=== PATIENT | female | born 1965 | race Hispanic/Latino ===

== ENCOUNTER → 2019-09-09 | Outpatient (CLI) | payer OTHER ==
[~2019-09-09] MED LIST: ASPIRIN81 MG PEG; DEXILANT30 MG PO; EFFIENT10 MG PO; METOPROLOL TART25 MG PO; NITROGLYCERIN0.4 MG SL; Rosuvastatin Calcium PO; VASOTEC10 M1 PO; VYTORIN 10-401 EACH PO
--- NOTE | 2019-09-09 15:04 | Diagnostic Imaging Report ---
CT of the abdomen and pelvis. Comparison: None Clinical History: Left flank pain Technique: Helical CT scan of the abdomen and pelvis was performed. Intravenous contrast administration was not utilized. Oral contrast administration was not utilized. Coronal and sagittal reconstructions were generated from the raw data. Multiple images were submitted for interpretation. This exam was performed according to our departmental dose-optimization program which includes automated exposure control, adjustment of the mA and/or kV according to patient size Discussion: Inferior chest: Unremarkable. Liver: Unremarkable Spleen: Unremarkable Pancreas: Unremarkable Biliary tree and gallbladder: Unremarkable Adrenal glands: Unremarkable Kidneys and ureters: 4 mm left UVJ calculus. Vasculature: Unremarkable except for minimal atherosclerosis Lymph nodes: Unremarkable Bowel: Unremarkable Pelvis: Urinary bladder is unremarkable. 2 cm right ovarian cyst otherwise unremarkable. Pelvic wall unremarkable. Peritoneum: Unremarkable Perineal compartments: unremarkable. Fluid: No free fluid Bones: Unremarkable Body wall: Unremarkable Impression: Possible left UVJ 4 mm calculus without hydronephrosis or hydroureter. No other renal or ureteric calculi visualized. Signed by: Sanjeev Nguyễn MD on 09/09/2019 3:01 PM
== END ==
LOC: CT 13:00
PROVIDERS: ATTEND Family Medicine
DX: N23 Unspecified renal colic (principal)
CPT/HCPCS: 74176

== ENCOUNTER → 2019-09-25 | Day surgery (SDC) | payer OTHER ==
--- NOTE | 2019-09-22 12:38 | Diagnostic Imaging Report ---
EXAMINATION: CHEST 2 VIEWS INDICATION: Pre-operative COMPARISON: None FINDINGS: LINES/TUBES:Left chest loop recorder device. LUNGS:The lungs are well-inflated. No focal consolidation or pulmonary edema. PLEURA:No pleural effusion or pneumothorax. MEDIASTINUM:The cardiomediastinal silhouette appears normal in size and shape. BONES/SOFT TISSUES:No acute osseous injury. ABDOMEN:No free air under the diaphragm. IMPRESSION: No focal pneumonia or pulmonary edema. Signed by: Carissa Garcia MD on 09/22/2019 12:35 PM
[2019-09-22 12:43] LABS: BASOPHILS # (AUTO) 0.1 (0.0-0.1); BASOPHILS % 0.9 % (0.0-1.0); EOSINOPHILS # (AUTO) 0.5 (0.0-0.4); EOSINOPHILS % 8.7 % (0.0-6.0); HEMATOCRIT 38.9 % (34.2-44.1); HEMOGLOBIN 13.4 g/dL (12.0-16.0); LYMPHOCYTES # (AUTO) 2.3 (1.0-3.2); MEAN CORPUSCULAR HGB CONC 34.4 g/dL (31-35); MONOCYTES # (AUTO) 0.4 (0.2-0.8); MONOCYTES % 6.6 % (4.4-11.3); NEUTROPHILS # (AUTO) 2.5 (2.1-6.9); NEUTROPHILS % 43.5 % (38.7-80.0); PLATELET COUNT 257 x10e3/uL (140-360); RED BLOOD COUNT 4.47 x10e6/uL (3.6-5.1); RED CELL DISTRIBUTION WIDTH 11.3 % (11.7-14.4)
[~2019-09-25] MED LIST changes: +ACETAMINOPHEN 1000 MG/100 ML IV ONE; +ACETAMINOPHEN325 M1 PO; -ASPIRIN81 MG PEG; +ASPIRIN81 MG PO; +CEFTRIAXONE SOD 1 GM/NS 50 ML 50 ML IV ONE; +DEXAMETHASONE SOD PHOS INJ 4 MG/ML VIAL ONE; +ETOMIDATE 2 MG/ML 10 ML INJ IV ONE; +FENOFIBRATE145 MG PO; +IOPAMIDOL 300MG/ML 50ML INFUS..BTL IV ONE; +LANSOPRAZOLE30 MG PO; +LIPITOR20 MG PO; +ONDANSETRON HCL INJ 2MG/ML 2ML 2 MG/ML VIAL ONE; +PROPOFOL IV EMULSION 10 MG/ML 20 ML VIAL ONE; +SEVOFLURANE INHAL SOLN 250 ML PEN BTL ONE
[2019-09-25 09:15] VITALS: BP 138/83
--- NOTE | 2019-09-25 15:45 | Diagnostic Imaging Report ---
OR Fluoroscopy: IMPRESSION: Fluoroscopy service provided in the OR. Interpretation not requested. Signed by: Sanjeev Nguyễn MD on 09/25/2019 3:41 PM
--- NOTE | 2019-09-27 12:58 | Operative Report ---
DATE OF PROCEDURE: 09/25/2019 SURGEON: Adryan Woods MD PREOPERATIVE DIAGNOSES: 1. Left ureteral calculus. 2. Hematuria. POSTOPERATIVE DIAGNOSES: 1. Left ureteral calculus. 2. Hematuria. 3. Ureteral stricture disease, passed stone. PROCEDURES: 1. Cystourethroscopy with right ureteral catheterization and right retrograde pyelogram (separate procedure for diagnosis of microscopic hematuria). 2. Left-sided ureteroscopy with dilation of ureteral stricture (entirely separate procedure for diagnosis of ureteral stricture disease). 3. Supervision of fluoroscopy for both ureteroscopy and retrograde pyelogram portions. 4. Interpretation of retrograde pyelography. ANESTHESIA: General. ESTIMATED BLOOD LOSS: Minimal. COMPLICATIONS: None. INDICATIONS FOR PROCEDURE: Mrs. Boyce is a very pleasant 54-year-old female with a history of failure to pass a 4 mm left renal stone. On the day of surgery, the patient still continued to have intermittent left-sided flank pain, sharp and severe; and is having the same as when she presented to the emergency room, showing an obstructing stone. The patient and I had a long discussion in the preoperative area regarding alternatives, risks, and benefits of doing nothing, cystoscopy, retrograde pyelogram, possible ureteroscopy, . She voiced understanding of the options, alternatives, risks, and benefits; and she elected to proceed. PROCEDURE IN DETAIL: After informed consent was obtained, the patient was taken to operative suite, placed supine on the operative table, underwent general anesthesia by the Anesthesia Service, was placed in dorsal position, and sterilely prepped and draped for cystoscopy. A 21-Bengali cystoscope was inserted per urethra and normal urethra was noted. Panendoscopy of the bladder revealed no tumors, no stones. Both ureteral orifices were normal in anatomic location and position was seen to efflux clear urine. Bilateral retrograde pyelogram was performed, on the left revealed several filling defects in the distal ureter with narrowing, guidewire was inserted, the ureter was dilated. The ureteroscope was advanced, there were several ureteral strictures seen. Stone was gone. At this time, ureteroscope was withdrawn. The safety wire was removed. The bladder was drained. The patient was awakened from anesthesia and transported to recovery room in excellent condition. No untoward effects noted. Supervision of fluoroscopy and interpretation of retrograde pyelography: I was present for the entire procedure and supervised fluoroscopy. There was no radiologist present. Attention was turned to the left and right ureters, which were catheterized. Retrograde pyelogram was performed; the right was normal, left revealed several distal narrowings. IMPRESSION: Filling defects corresponding to the ureteral stricture seen ureteroscopically. MD LASHON Alcantara/CORAZON /[id number]
== END | disposition home or self-care (01) ==
LOC: OR 05:48
PROVIDERS: ATTEND Urology
DX: N13.5 Crossing vessel and stricture of ureter without hydronephrosis (principal); N20.1 Calculus of ureter; N39.0 Urinary tract infection, site not specified; N13.30 Unspecified hydronephrosis; R35.1 Nocturia; I10 Essential (primary) hypertension; I25.10 Atherosclerotic heart disease of native coronary artery without angina pectoris; F41.8 Other specified anxiety disorders; Z88.6 Allergy status to analgesic agent; Z01.810 Encounter for preprocedural cardiovascular examination; Z01.812 Encounter for preprocedural laboratory examination; Z01.818 Encounter for other preprocedural examination; Z11.59 Encounter for screening for other viral diseases; Z79.82 Long term (current) use of aspirin; Z98.61 Coronary angioplasty status
CPT/HCPCS: 36415; 52344; 71046; 74420; 85025; 87635; 93005; C1758 ×2; C1769; J0131; J0696; J1100; J2405; J2704; Q9967

== ENCOUNTER 2019-12-16 15:12 | Emergency (ER) | payer OTHER ==
[~2019-12-16] VITALS: Ht 162.6 cm; Wt 65.3 kg
[~2019-12-16 15:12] MED LIST changes: -ACETAMINOPHEN 1000 MG/100 ML IV ONE; -CEFTRIAXONE SOD 1 GM/NS 50 ML 50 ML IV ONE; -DEXAMETHASONE SOD PHOS INJ 4 MG/ML VIAL ONE; -ETOMIDATE 2 MG/ML 10 ML INJ IV ONE; -IOPAMIDOL 300MG/ML 50ML INFUS..BTL IV ONE; -ONDANSETRON HCL INJ 2MG/ML 2ML 2 MG/ML VIAL ONE; -PROPOFOL IV EMULSION 10 MG/ML 20 ML VIAL ONE; -SEVOFLURANE INHAL SOLN 250 ML PEN BTL ONE
[2019-12-16] MEDS ORDERED: ONDANSETRON HCL INJ 2MG/ML 2ML 2 MG/ML VIAL IV STA (15:21)
[2019-12-16] MEDS ORDERED: DILTIAZEM HCL 5 MG/ML 5 ML VIAL IV STA (15:21)
[2019-12-16] MEDS ORDERED: SODIUM CHLORIDE 0.9% 1000ML 1,000 ML IV STA (15:21)
[2019-12-16] MEDS ORDERED: ADENOSINE 6MG/2ML 0 ML ONE (15:22)
[2019-12-16] MEDS ORDERED: DILTIAZEM HCL VIAL 5 ML ONE (15:25)
--- OUTSIDE RECORDS SUMMARY | 2019-12-16 15:25 | XMS REPORT | Summary of Care ---
Author Author [facility] Organization [facility] Address Unknown Phone Unavailable Encounter HQ Encntr_[id number](FIN) [id number] Date(s): 10/20/19 - 10/20/19 [facility] [address] [place] [address]- Discharge Disposition: Home or Self Care Attending Physician: Tino Orozco MD Admitting Physician: Tino Orozco MD Referring Physician: Tino Orozco MD Vital Signs No data available for this section Problem List No data available for this section Allergies, Adverse Reactions, Alerts Substance Reaction Severity Status morphine Active Benadryl Active Medications No data available for this section Results No data available for this section Immunizations No data available for this section Procedures No data available for this section Social History Social History Type Response Assessment and Plan No data available for this section
--- OUTSIDE RECORDS SUMMARY | 2019-12-16 15:25 | XMS REPORT | Continuity of Care Document ---
Author Author [employer] [facility] Address Unknown Phone Unavailable Care Team Providers Care Mental Tester Name Role Phone [facility] Information [place] Unavailable Un available Problems Problem Status Onset Date Classification Date Reported Comments Source DX: INVALID ORDER, PENDING NEW ORDER * Active 10/19/2019 [facility] ROUTINE MAMMO Active 10/15/2019 [facility] ROUTINE Active 06/09/2018 [facility] SCREENING Active 05/04/2014 [facility] Encounter for screening mammogram for ma lignant neoplasm of breast 06/19/2018 [facility] Medications No Data Provided for This Section Allergies, Adverse Reactions, Alerts Substance Category Reaction Severity Reaction type Status Date Reported Comments Source Benadryl Assertion Drug allergy Active [facility] morphine Assertion Drug allergy Active [facility] Immunizations No Data Provided for This Section Results No Data Provided for This Section Pathology Reports No Data Provided for This Section Diagnostic Reports Report Value Date Source Breast Complete Jessica US COMPLETE ULTRASOUND OF BOTH BREASTS AND AXILLA: 10/20/2019 CLINICAL: /Pain. COMPARISON:Comparison is made to exams dated: 10/20/2019 mammogram, 06/17/2018 mammogram, 05/11/2014 mammogram, and 09/28/2011 mammogram - [facility]. TECHNIQUE: Color flow and real-time ultrasound of both breasts four quadrants, retroareolar, and axilla regions were performed. Osborn scale images of the real- time examination were reviewed. FINDINGS: No abnormalities were seen sonographically in either breast or either axilla. IMPRESSION: NEGATIVE RECOMMENDATION:There is no sonographic evidence of malignancy. There is no mammographic or sonographic abnormality seen in either breast to correspond with the pain which likely represents hormonal stimulation and normal fibroglandular tissue. A 1 year screening mammogram is recommended.(10/20/2020) The results were reviewed with the patient. This exam was interpreted at [id number] for [facility]. Rayray diaz/salvador:10/20/2019 13:44:52 [employer] Operator(s): Elodia Mosher, [facility] letter sent: BI-RADS 1/2 Ultrasound BI-RADS: 1 Negative 10/20/2019 [facility] Mammo Diag JESSICA incl CAD MA BILATERAL DIGITAL DIAGNOSTIC MAMMOGRAM WITH CAD: 10/20/2019 CLINICAL: /Pain. Current study was evaluated with a Computer Aided Detection (CAD) system. COMPARISON:Comparison is made to exams dated: 06/17/2018 mammogram and 05/11/2014 mammogram - [facility]. TECHNIQUE: Mammographic views were obtained using digital acquisition. Cenovia Version 1.3 was utilized for computer aided detection. FINDINGS: The tissue of both breasts is heterogeneously dense, which could obscure detection of small masses. There is a left implantable cardiac device/loop monitor. There are benign calcifications in both breasts. No significant masses, calcifications, or other findings are seen in either breast. There has been no significant interval change. IMPRESSION: INCOMPLETE: NEEDS ADDITIONAL IMAGING EVALUATION RECOMMENDATION:There is no mammographic abnormality seen in either breast to correspond with the pain, however, ultrasound is recommended. The results were reviewed with the patient. This exam was interpreted at [id number] for [facility]. SUMMARY: Ultrasound will be performed at this time; please see dedicated separate report. Rayray diaz/pengato:10/20/2019 13:42:32 Wastewater Treatment Operator(s): Henrietta Yepez, [facility] Mammogram BI-RADS: 0 Indeterminate 10/20/2019 [facility] Mammo Scrn JESSICA w krysta incl CAD MA BILATERAL DIGITAL SCREENING MAMMOGRAM 3D/2D WITH CAD: 06/17/2018 CLINICAL: /Routine. Current study was evaluated with a Computer Aided Detection (CAD) system. COMPARISON:Comparison is made to exams dated: 05/11/2014 mammogram, 09/28/2011 mammogram, 03/01/2009 mammogram - [facility], 05/23/2006, and 11/19/2002. TECHNIQUE: Digital Breast Tomosynthesis was performed and utilized for Interpretation. BackupAgentovia Version 1.3 was utilized for computer aided detection. FINDINGS: The tissue of both breasts is heterogeneously dense, which could obscure detection of small masses. There is a new left implantable cardiac device/loop monitor. There are benign calcifications in both breasts. No significant masses, calcifications, or other findings are seen in either breast. There has been no significant interval change. IMPRESSION: BENIGN RECOMMENDATION:There is no mammographic evidence of malignancy. A 1 year screening mammogram is recommended.(06/18/2019) This exam was interpreted at [id number] for [facility]. Rayray jenkinst/penrad:06/17/2018 11:32:13 Wastewater Treatment Operator(s): Irma Hogan, [facility] letter sent: BI-RADS 1/2 Dense Mammogram BI-RADS: 2 Benign 06/17/2018 [facility] Digital Mammo Screening Jessica MA - DIGITAL MAMMO SCREENING JESSICA MA BILATERAL DIGITAL SCREENING MAMMOGRAM WITH CAD: 05/11/2014 CLINICAL: Routine. Current study was evaluated with a Computer Aided Detection (CAD) system. Comparison is made to exams dated: 09/28/2011 mammogram, 03/01/2009 mammogram - [facility], 05/23/2006 and 11/19/2002. The tissue of both breasts is heterogeneously dense, which could obscure detection of small masses. There are benign calcifications in both breasts. No significant masses, calcifications, or other findings are seen in either breast. There has been no significant interval change. IMPRESSION: BENIGN There is no mammographic evidence of malignancy. A screening mammogram in one year is recommended. Rayray diaz/penrad:05/12/2014 07:58:18 Wastewater Treatment Operator: Maura Cohen, [facility] This exam was dictated and interpreted by [id number] for [facility]. letter sent: Normal exam Mammogram BI-RADS: 2 Benign 05/11/2014 [facility] Consultation Notes No Data Provided for This Section Discharge Summaries No Data Provided for This Section History and Physicals No Data Provided for This Section Vital Signs No Data Provided for This Section Encounters Location Location Details Encounter Type Encounter Number Reason For Visit Attending Provider ADM Date DC Date Status Source [facility] Outpatient [id number] Tino Orozco 05/11/2014 05/12/2014 [facility] PreReg [id number] Jono Beckett 02/17/2018 03/05/2018 [facility] Outpatient [id number] Jono Beckett 06/17/2018 06/18/2018 [facility] Outpatient [id number] Tino Orozco 10/20/2019 10/21/2019 [facility] Procedures No Data Provided for This Section Assessment and Plan No Data Provided for This Section Plan of Care No Data Provided for This Section Social History Social History Date Source Social History TypeResponse 10/21/2019 [facility] Family History No Data Provided for This Section Advance Directives No Data Provided for This Section Functional Status No Data Provided for This Section
--- OUTSIDE RECORDS SUMMARY | 2019-12-16 15:25 | XMS REPORT | Clinical Summary ---
Author Author [facility] Organization [employer] [facility] Address Unknown Phone Unavailable Care Team Providers Care Administrative Resident Name Role Phone PCP Unavailable Allergies Comments Active Allergy Reactions Severity Noted Date Latex Rash Low 11/18/2016 Morphine Rash Low 11/17/2016 Medications End Date Status Medication Sig Dispensed Refills Start Date Active nitroglycerin (NITRO-BID) Take 2.5 mg 0 2.5 MG CR capsule by mouth 3 (three) times a day. Active prasugrel (EFFIENT) 10 mg Take 10 mg by 0 tablet mouth daily. Active diltiazem CD (CardIZEM Take 120 mg 0 CD) 120 MG 24 hr capsule by mouth daily. Active rosuvastatin (CRESTOR) 40 Take 40 mg by 0 MG tablet mouth daily. Active aspirin (ECOTRIN) 81 MG Take 81 mg by 0 enteric coated tablet mouth daily. Active arginine HCl, L-arginine, Take by 0 1,000 mg tablet mouth. Active Problems Problem Noted Date Chest pain 11/18/2016 Family History Medical History Relation Name Comments Hyperlipidemia Brother Hypertension Brother Diabetes Mother Hyperlipidemia Mother Hypertension Mother Relation Name Status Comments Brother Mother Social History Date Tobacco Use Types Packs/Day Years Used Never Smoker Drinks/Week oz/Week Comments Alcohol Use social Yes Sex Assigned at Date Recorded Not on file Industry Job Start Date Occupation Not on file Not on file Not on file Travel End Travel History Travel Start No recent travel history available. Last Filed Vital Signs Not on file Plan of Treatment Health Maintenance Due Date Last Done Comments CERVICAL CANCER SCREENING 1988 BREAST CANCER SCREENING 2017 COLONOSCOPY SCREENING 2017 SHINGLES VACCINES (#1) 2017 INFLUENZA VACCINE 01/21/2020 Results Not on fileafter 12/15/2018 Insurance Type Payer Benefit Subscriber ID Effective Phone Address Plan / Dates Group HMO CIGNA CIGNA xxxxxxxxxxx 2014-P HMO/POS resent [id number] Advance Directives For more information, please contact: [phone] Patient Lidder Explanation Type Date Recorded Advance Directives, 11/18/2016 1:13 AM Living Will and Medical Power of Associate Veterinarian
[2019-12-16] MEDS ORDERED: KETOROLAC TROMETHAMINE 30 MG/ML VIAL IV STA ×2 (15:29→15:32)
[2019-12-16 15:33] LABS: BASOPHILS % 0.4 % (0.0-1.0); EOSINOPHILS # (AUTO) 0.3 (0.0-0.4); EOSINOPHILS % 2.8 % (0.0-6.0); HEMATOCRIT 40.3 % (34.2-44.1); HEMOGLOBIN 13.9 g/dL (12.0-16.0); LYMPHOCYTES # (AUTO) 3.5 (1.0-3.2); LYMPHOCYTES % 34.6 % (18.0-39.1); MEAN CORPUSCULAR HEMOGLOBIN 29.6 pg (28-32); MEAN CORPUSCULAR HGB CONC 34.5 g/dL (31-35); MEAN CORPUSCULAR VOLUME 85.9 fL (81-99); MONOCYTES # (AUTO) 0.5 (0.2-0.8); MONOCYTES % 5.3 % (4.4-11.3); NEUTROPHILS # (AUTO) 5.7 (2.1-6.9); NEUTROPHILS % 56.5 % (38.7-80.0); PLATELET COUNT 323 x10e3/uL (140-360); RED BLOOD COUNT 4.69 x10e6/uL (3.6-5.1); RED CELL DISTRIBUTION WIDTH 11.7 % (11.7-14.4)
[2019-12-16 15:40] LABS: INR 0.87; PROTHROMBIN TIME 12.2 seconds (11.9-14.5)
[2019-12-16 15:41] LABS: PARTIAL THROMBOPLASTIN TIME 29.5 seconds (23.8-35.5)
[2019-12-16 15:54] LABS: ALBUMIN 4.6 g/dL (3.5-5.0); ALBUMIN/GLOBULIN RATIO 1.3 (0.8-2.0); ANION GAP 19.7 mmol/L (8-16); CALCIUM 10.1 mg/dL (8.4-10.2); CREATININE, SERUM 1.12 mg/dL (0.57-1.11); MAGNESIUM 1.7 MG/DL (1.3-2.1); POTASSIUM 3.7 mmol/L (3.5-5.1)
[2019-12-16 16:00] LABS: CREATINE KINASE MB 1.2 ng/mL (0-5.0)
--- NOTE | 2019-12-16 16:04 | Emergency Department Note ---
History of Present Illnes History of Present Illness Chief Complaint: Chest Pain History of Present Illness This is a 54 year old female 54 Y/O FEMALE PT AAOX3 REPORTS SEVERE HEADACHE X1 WEEK, WORSE SINCE YESTERDAY, PT TO ED RM #9 ON ARRIVAL, EKG PERFORMED AND GIVEN TO ER MD FOR REVIEW, [address]'S ST. ALSO C/O PALPITATIONS; 20 GAUGE IV CATH PLACED TO PTS LEFT AC, 18 GAUGE IV CATH PLACED TO PTS RIGHT AC, BLOOD OBTAINED FOR LAB ANALYSIS; O2 SAT RA 100%, SKIN WARM, DRY, COLOR WNL FOR PT; PT ATTACHED TO BS / PIPING SUPERVISOR. Historian: Patient, Family Member Arrival Mode: Car Onset (how long ago): week(s) (1) Location: HEAD Quality: ACHE Radiation: Reports non-radiation Severity: severe Onset quality: gradual Timing of current episode: constant Progression: waxing and waning Chronicity: new Context: Denies recent illness Relieving factors: none Exacerbating factors: none Associated symptoms: Reports denies other symptoms, Reports chest pain, Reports headaches Treatments prior to arrival: none (MAXIMILIANO ANDERSON MD) Past Medical/Family History Physician Review I have reviewed the patient's past medical and family history. Any updates have been documented here. (MAXIMILIANO ANDERSON MD) Past Medical History Recent Fever: No Clinical Suspicion of Infectio: No New/Unexplained Change in Ment: No Past Medical History: CAD, Hyperlipedemia Past Surgical History: Hysterectomy, T&A, Other Surgery: THROAT ABDOMINOPLASTY CARDIAC ANGIO X2, PCI - STENT IN RCA (MAXIMILIANO ANDERSON MD) Social History Smoking Cessation: Never Smoker Counseling Performed: No Alcohol Use: None Any Illegal Drug Use: No TB Exposure/Symptoms: No Physically hurt or threatened: No (MAXIMILIANO ANDERSON MD) Family History Family history of heart diseas: No (MAXIMILIANO ANDERSON MD) Other Any Pre-Existing Lines (PICC,: No (MAXIMILIANO ANDERSON MD) Review of Systems Review of Systems Constitutional: Reports no symptoms EENTM: Reports no symptoms Cardiovascular: Reports as per HPI, Reports chest pain, Reports palpitations Respiratory: Reports no symptoms Gastrointestinal: Reports no symptoms Genitourinary: Reports no symptoms Musculoskeletal: Reports no symptoms Integumentary: Reports no symptoms Neurological: Reports as per HPI, Reports headache Psychological: Reports no symptoms Endocrine: Reports no symptoms Hematological/Lymphatic: Reports no symptoms (MAXIMILIANO ANDERSON MD) Physical Exam Related Data Allergies: Coded Allergies: latex (Verified Allergy, Severe, 09/12/16) morphine (Verified Allergy, Severe, 09/12/16) Triage Vital Signs Vital Signs Date Time Temp Pulse Resp B/P (MAP) Pulse Ox O2 Delivery O2 Flow Rate FiO2 12/16/19 15:21 142 196/99 12/16/19 15:28 98.9 25 100 Room Air Vital signs reviewed: Yes (MAXIMILIANO ANDERSON MD) Physical Exam CONSTITUTIONAL Constitutional: Present well-developed, Present well-nourished HENT HENT: Present normocephalic, Present atraumatic, Present oropharynx clear/moist, Present nose normal HENT L/R: Present left ext ear normal, Present right ext ear normal EYES Eyes: Reports PERRL, Reports conjunctivae normal NECK Neck: Present ROM normal PULMONARY Pulmonary: Present effort normal, Present breath sounds normal CARDIOVASCULAR Cardiovascular: Present regular rhythm, Present heart sounds normal, Present capillary refill normal, Present tachycardia; Absent bradycardia, Absent murmur GASTROINTESTINAL Abdominal: Present soft, Present nontender, Present bowel sounds normal GENITOURINARY Genitourinary: Present exam deferred SKIN Skin: Present warm, Present dry MUSCULOSKELETAL Musculoskeletal: Present ROM normal NEUROLOGICAL Neurological: Present alert, Present oriented x 3, Present no gross motor or sensory deficits; Absent cranial nerve deficit, Absent sensory deficit, Absent abnormal gait, Absent weakness PSYCHOLOGICAL Psychological: Present mood/affect normal, Present judgement normal (MAXIMILIANO ANDERSON MD) Results Laboratory Result Diagram: 12/16/19 1530 12/16/19 1520 Laboratory Laboratory Tests Test 12/16/19 15:30 12/16/19 15:20 White Blood Count 10.15 x10e3/uL (4.8-10.8) Red Blood Count 4.69 x10e6/uL (3.6-5.1) Hemoglobin 13.9 g/dL (12.0-16.0) Hematocrit 40.3 % (34.2-44.1) Mean Corpuscular Volume 85.9 fL (81-99) Mean Corpuscular Hemoglobin 29.6 pg (28-32) Mean Corpuscular Hemoglobin Concent 34.5 g/dL (31-35) Red Cell Distribution Width 11.7 % (11.7-14.4) Platelet Count 323 x10e3/uL (140-360) Neutrophils (%) (Auto) 56.5 % (38.7-80.0) Lymphocytes (%) (Auto) 34.6 % (18.0-39.1) Monocytes (%) (Auto) 5.3 % (4.4-11.3) Eosinophils (%) (Auto) 2.8 % (0.0-6.0) Basophils (%) (Auto) 0.4 % (0.0-1.0) Neutrophils # (Auto) 5.7 (2.1-6.9) Lymphocytes # (Auto) 3.5 (1.0-3.2) Monocytes # (Auto) 0.5 (0.2-0.8) Eosinophils # (Auto) 0.3 (0.0-0.4) Basophils # (Auto) 0.0 (0.0-0.1) Absolute Immature Granulocyte (auto 0.04 x10e3/uL (0-0.1) Prothrombin Time 12.2 seconds (11.9-14.5) Prothromb Time International Ratio 0.87 Activated Partial Thromboplast Time 29.5 seconds (23.8-35.5) D-Dimer Quantitative (PE/DVT) < 100 ng/mL (0-400) B-Type Natriuretic Peptide 16.2 pg/mL (0-100) Sodium Level 141 mmol/L (136-145) Potassium Level 3.7 mmol/L (3.5-5.1) Chloride Level 104 mmol/L (98-107) Carbon Dioxide Level 21 mmol/L (22-29) Anion Gap 19.7 mmol/L (8-16) Blood Urea Nitrogen 19 mg/dL (7-26) Creatinine 1.12 mg/dL (0.57-1.11) Estimat Glomerular Filtration Rate 51 ML/MIN (60-) BUN/Creatinine Ratio 17 (6-25) Glucose Level 217 mg/dL (74-118) Calcium Level 10.1 mg/dL (8.4-10.2) Magnesium Level 1.7 MG/DL (1.3-2.1) Total Bilirubin 0.5 mg/dL (0.2-1.2) Aspartate Amino Transf (AST/SGOT) 21 IU/L (5-34) Alanine Aminotransferase (ALT/SGPT) 18 IU/L (0-55) Alkaline Phosphatase 71 IU/L (40-150) Creatine Kinase 123 IU/L (29-168) Total Protein 8.1 g/dL (6.5-8.1) Albumin 4.6 g/dL (3.5-5.0) Globulin 3.5 g/dL (2.3-3.5) Albumin/Globulin Ratio 1.3 (0.8-2.0) Lab results reviewed: Yes (MAXIMILIANO ANDERSON MD) Assessment & Plan Medical Decision Making MDM CP, PALPITATIONS, HEADACHE - CHECK CBC, CHEM, ECG, CARDIACS, TSH, CXR, CT BRAIN - R/O ELECTROLYTE ABNL, STEMI/NSTEMI, ATRIAL DYSRHYTHMIA VS SINUS TACHY, CEREBRAL BLEED (MAXIMILIANO ANDERSON MD) MDM Dr. perez unable t see patient. Work up unremarkable. I discussed results patient at this time I doubt an emergent process causing her headache or chest pain. Tachycardia improved. Referral for neurology was placed and she will follow-up with them and her primary doctor. Patient states cream and plan she is appropriate for discharge. (MAU MCCOY MD) Reassessment Reassessment REPORT TO DR MCCOY TO F/U LABS, CT BRAIN, DISPO. I SPOKE WITH DR GALINDO WHO WILL COME TO ER TO SEE PT (MAXIMILIANO ANDERSON MD) Reassessment time: 18:32 Reassessment Well appearing, NAD, pain improved (MAU MCCOY MD) Assessment & Plan Final Impression: (1) Headache (MAU MCCOY MD) Depart Disposition: HOME, SELF-CARE Last Vital Signs Date Time Temp Pulse Resp B/P (MAP) Pulse Ox O2 Delivery O2 Flow Rate FiO2 12/16/19 15:45 108 19 155/87 100 Room Air 12/16/19 15:28 98.9 (MAXIMILIANO ANDERSON MD) Home Meds Reported Medications Acetaminophen (ACETAMINOPHEN) 325 Mg Tablet, 500 MG PO PRN for 5 Days, TAB 09/21/19 Atorvastatin Calcium (LIPITOR) 20 Mg Tablet, 40 MG PO HS, TAB 09/21/19 Lansoprazole (LANSOPRAZOLE) 30 Mg Capsule.dr, 30 MG PO DAILY 09/21/19 Aspirin (ASPIRIN) 81 Mg Tab.chew, 81 MG PO DAILY 09/11/16 Nitroglycerin (NITROGLYCERIN) 0.4 Mg Tab.subl, 0.4 MG SL Q5MIN, TAB 09/11/16 Medications in the ED Adenosine 0 ml @ ud STK-MED ONCE .ROUTE ; Start 12/16/19 at 15:22; Stop 12/16/19 at 15:16; Status DC Diltiazem HCl 5 ml @ ud STK-MED ONCE .ROUTE ; Start 12/16/19 at 15:25; Stop at 15:19; Status DC Ondansetron HCl 4 mg ONCE STAT IV Last administered on 12/16/19at 15:34; Admin Dose 4 MG; Start 12/16/19 at 15:21; Stop 12/16/19 at 15:22 Sodium Chloride 1,000 ml @ 0 mls/hr Q0M STAT IV Last administered on 12/16/19at 15:34; Admin Dose 999 MLS/HR; Start 12/16/19 at 15:21; Stop 12/16/19 at 15:22 Diltiazem HCl 10 mg NOW STAT IV Last administered on 12/16/19at 15:21; Admin Dose 10 MG; Start 12/16/19 at 15:21; Stop 12/16/19 at 15:22 Ketorolac Tromethamine 30 mg ONCE STAT IV Last administered on 12/16/19at 15:33; Admin Dose 30 MG; Start 12/16/19 at 15:29; Stop 12/16/19 at 15:30 Ketorolac Tromethamine 30 mg ONCE STAT IV ; Start 12/16/19 at 15:32; Stop 12/16/19 at 15:33 (MAXIMILIANO ANDERSON MD) MAXIMILIANO ANDERSON MD Dec 16, 2019 16:04 MAU MCCOY MD Dec 16, 2019 18:33
--- NOTE | 2019-12-16 16:24 | Diagnostic Imaging Report ---
EXAMINATION: CHEST SINGLE (PORTABLE) INDICATION: Chest pain COMPARISON: Chest radiograph 09/22/2019 FINDINGS: LINES/TUBES:EKG leads overlie the chest. Loop recorder device. LUNGS:The lungs are well-inflated. No focal consolidation or pulmonary edema. PLEURA:No pleural effusion or pneumothorax. MEDIASTINUM:The cardiomediastinal silhouette appears normal in size and shape. BONES/SOFT TISSUES:No acute osseous injury. ABDOMEN:No free air under the diaphragm. IMPRESSION: No focal pneumonia or pulmonary edema. Signed by: Carissa Garcia MD on 12/16/2019 4:20 PM
--- NOTE | 2019-12-16 17:55 | Diagnostic Imaging Report ---
Examination: CT head without contrast Clinical Indication: Headache. Anxiety. Technique: Transaxial noncontrast images from the skull base through the vertex were obtained. Sagittal and coronal reformatted images were done. Dose modulation, iterative reconstruction, and/or weight based adjustment of the mA/kV was utilized to reduce the radiation dose to as low as reasonably achievable. Comparison: None. Findings: Scalp: No abnormalities. Bones: Intact. No fractures. No blastic or lytic lesions. Brain sulci: Appropriate for patient's age. Ventricles: Normal in size and configuration. No hydrocephalus. Extra-axial space: No abnormalities. Parenchyma: No abnormal densities. No masses, hemorrhage, or acute or chronic cortical based vascular insults. Suprasellar region: No abnormalities. Craniocervical junction: The foramen magnum is patent. No Chiari one malformation. Impression: No acute intracranial abnormality. Signed by: Dr. Vianney De Oliveira M.D. on 12/16/2019 5:52 PM
== END 2019-12-16 19:35 | disposition home or self-care (01) ==
LOC: ER 15:23
DX: R51 Headache (principal); R00.2 Palpitations; E78.5 Hyperlipidemia, unspecified; I25.10 Atherosclerotic heart disease of native coronary artery without angina pectoris
CPT/HCPCS: 36415; 70450; 71045; 80053; 82550; 82553; 83735; 83880; 84443; 84484; 85025; 85379; 85610; 85730; 93005; 99284; J1885; J2405; J7030; J0153

== ENCOUNTER → 2019-12-18 | Outpatient (CLI) | payer OTHER ==
--- NOTE | 2019-12-18 12:06 | Diagnostic Imaging Report ---
Examination: MRI BRAIN WO CONTRAST History: Headache and left-sided numbness for 2 days Comparison studies: Head CT performed December 16, 2019 Technique: Sagittal T2; axial DWI, FLAIR, GRE or SWI, T1, Coronal FLAIR. Intravenous contrast: None Findings: Scalp: No abnormal signal. No masses. Bone marrow: Normal in signal intensity. Brain volume: Adequate for age. No volume loss. Ventricles: Normal in size and configuration. No hydrocephalus. Extra-axial spaces: No abnormalities. Parenchyma: There are several scattered areas of T2/FLAIR hyperintensity in the periventricular and subcortical white matter, nonspecific. No masses, hemorrhage, acute or chronic vascular insults. Suprasellar and sellar region: No abnormalities. Craniocervical junction: No abnormalities. The foramen magnum is patent. No Chiari malformations. Vessels: Normal flow-voids in the arteries and sinuses. Additional findings:Retention cyst in the left maxillary sinus IMPRESSION: No new or acute intracranial abnormalities when compared to prior head CT from December 16, 2019 and when accounting for differences in imaging technique. Chronic microvascular ischemic change. Signed by: Dr. Vianney De Oliveira M.D. on 12/18/2019 12:03 PM
== END ==
LOC: MRI 08:24
PROVIDERS: ATTEND Internal Medicine Cardiovascular Disease
DX: G45.9 Transient cerebral ischemic attack, unspecified (principal)
CPT/HCPCS: 70551

== ENCOUNTER → 2020-05-23 | Outpatient (CLI) | payer OTHER | LOC: RAD 15:04 | PROVIDERS: ATTEND Family Medicine | DX: Z09 Encounter for follow-up examination after completed treatment for conditions other than malignant neoplasm (principal); J40 Bronchitis, not specified as acute or chronic; R07.89 Other chest pain | CPT/HCPCS: 71046 ==

== ENCOUNTER 2020-10-29 21:50 | Observation (INO) | payer OTHER ==
[~2020-10-29] VITALS: Ht 162.6 cm; Wt 63.6 kg
[2020-10-29 23:25] LABS: BASOPHILS # (AUTO) 0.1 (0.0-0.1); EOSINOPHILS # (AUTO) 0.5 (0.0-0.4); EOSINOPHILS % 8.7 % (0.0-6.0); HEMOGLOBIN 12.8 g/dL (12.0-16.0); LYMPHOCYTES # (AUTO) 2.4 (1.0-3.2); LYMPHOCYTES % 38.8 % (18.0-39.1); MEAN CORPUSCULAR HEMOGLOBIN 29.5 pg (28-32); MEAN CORPUSCULAR HGB CONC 33.7 g/dL (31-35); MEAN CORPUSCULAR VOLUME 87.6 fL (81-99); MONOCYTES # (AUTO) 0.5 (0.2-0.8); MONOCYTES % 8.2 % (4.4-11.3); NEUTROPHILS # (AUTO) 2.6 (2.1-6.9); PLATELET COUNT 289 x10e3/uL (140-360); RED BLOOD COUNT 4.34 x10e6/uL (3.6-5.1); RED CELL DISTRIBUTION WIDTH 12.1 % (11.7-14.4)
[2020-10-29 23:50] LABS: ALANINE AMINOTRANSFERASE 19 IU/L (0-55); ALBUMIN 4.5 g/dL (3.5-5.0); ALBUMIN/GLOBULIN RATIO 1.4 (0.8-2.0); ALKALINE PHOSPHATASE 70 IU/L (40-150); ANION GAP 15.8 mmol/L (8-16); BLOOD UREA NITROGEN 12 mg/dL (7-26); BUN/CREATININE RATIO 14 (6-25); CALCIUM 9.9 mg/dL (8.4-10.2); CARBON DIOXIDE 23 mmol/L (22-29); CHLORIDE 107 mmol/L (98-107); CREATINE KINASE 98 IU/L (29-168); CREATININE, SERUM 0.83 mg/dL (0.57-1.11); EST GLOMERULAR FILTRATION RATE 72 ML/MIN (60-); GLUCOSE 98 mg/dL (74-118); POTASSIUM 3.8 mmol/L (3.5-5.1); SODIUM 142 mmol/L (136-145)
[2020-10-30] MEDS ORDERED: ONDANSETRON HCL INJ 2MG/ML 2ML 2 MG/ML VIAL IV PRN (00:30)
[2020-10-30] MEDS: NITROGLYCERIN 2% OINT 1 GM PKT TOP SCH ×2 (00:30→05:39)
[2020-10-30] MEDS ORDERED: SODIUM CHLORIDE FLUSH 10 ML SYR INJ PRN (00:30)
[2020-10-30] MEDS ORDERED: GLIMEPIRIDE2 MG PO (00:45)
[2020-10-30] MEDS ORDERED: CLOPIDOGREL75 MG PO (00:45)
[2020-10-30] MEDS ORDERED: ATORVASTATIN CA10 MG PO (00:45)
[2020-10-30] MEDS ORDERED: DILTIAZEM 24HR120 M1 PO (00:45)
[2020-10-30] MEDS ORDERED: ZETIA10 MG PO (00:45)
[2020-10-30] MEDS ORDERED: TRICOR145 MG PO (00:45)
[2020-10-30 01:30] VITALS: BP 141/85
[2020-10-30 04:00] VITALS: BP 101/62
[2020-10-30 08:07] VITALS: BP 103/63
[2020-10-30 08:50] VITALS: BP 103/63
[2020-10-30] MEDS ORDERED: ASPIRIN 81 MG ENTERIC COATED PO SCH (09:00)
[2020-10-30] MEDS ORDERED: NITROGLYCERIN 0.4 MG SUBL SL SCH (09:30)
[2020-10-30 09:54] LABS: CREATINE KINASE 74 IU/L (29-168)
[2020-10-30] MEDS ORDERED: GLIMEPIRIDE 2 MG TAB PO SCH (10:00)
[2020-10-30] MEDS ORDERED: CLOPIDOGREL BISULFATE 75 MG TAB PO SCH (10:00)
[2020-10-30] MEDS ORDERED: DILTIAZEM HCL ER 120 MG CAP PO SCH (10:00)
[2020-10-30] MEDS ORDERED: FENOFIBRATE 145 MG TAB PO SCH ×2 (10:00→20:00)
[2020-10-30 12:32] VITALS: BP 114/68
[2020-10-30] MEDS ORDERED: ATORVASTATIN 10 MG TAB PO SCH (21:00)
[2020-10-31] MEDS ORDERED: EZETIMIBE 10 MG TAB PO SCH (09:00)
== END 2020-10-30 15:49 | disposition home or self-care (01) ==
LOC: ER 22:06 → ERHOLD 10-30 00:37 → MED/SURG2 10-30 01:24
PROVIDERS: ADMIT Internal Medicine; ATTEND Internal Medicine
DX: I25.118 Atherosclerotic heart disease of native coronary artery with other forms of angina pectoris (principal); I10 Essential (primary) hypertension; R07.9 Chest pain, unspecified; E11.9 Type 2 diabetes mellitus without complications; E78.2 Mixed hyperlipidemia; Z88.5 Allergy status to narcotic agent; Z95.5 Presence of coronary angioplasty implant and graft; Z88.8 Allergy status to other drugs, medicaments and biological substances; Z91.040 Latex allergy status
CPT/HCPCS: 36415 ×2; 71045; 80053; 82550 ×2; 82553 ×2; 82948; 84484 ×2; 85025; 85379; 93005; 99284; G0378

== ENCOUNTER 2021-09-10 22:33 | Emergency (ER) | payer OTHER ==
[~2021-09-10] VITALS: Ht 162.6 cm; Wt 63.5 kg
[~2021-09-10 22:33] MED LIST changes: +ATORVASTATIN CA10 MG PO; +CLOPIDOGREL75 MG PO; +DILTIAZEM 24HR120 M1 PO; +GLIMEPIRIDE2 MG PO; +TRICOR145 MG PO; +ZETIA10 MG PO
[2021-09-10 23:15] LABS: BASOPHILS # (AUTO) 0.1 (0.0-0.1); BASOPHILS % 0.8 % (0.0-1.0); EOSINOPHILS # (AUTO) 0.5 (0.0-0.4); EOSINOPHILS % 7.5 % (0.0-6.0); HEMOGLOBIN 13.8 g/dL (12.0-16.0); LYMPHOCYTES # (AUTO) 2.8 (1.0-3.2); LYMPHOCYTES % 47.4 % (18.0-39.1); MEAN CORPUSCULAR HEMOGLOBIN 30.9 pg (28-32); MEAN CORPUSCULAR HGB CONC 34.5 g/dL (31-35); MEAN CORPUSCULAR VOLUME 89.5 fL (81-99); MONOCYTES # (AUTO) 0.4 (0.2-0.8); MONOCYTES % 6.5 % (4.4-11.3); NEUTROPHILS # (AUTO) 2.2 (2.1-6.9); NEUTROPHILS % 37.5 % (38.7-80.0); PLATELET COUNT 287 x10e3/uL (140-360); RED BLOOD COUNT 4.47 x10e6/uL (3.6-5.1); RED CELL DISTRIBUTION WIDTH 11.8 % (11.7-14.4)
[2021-09-10 23:29] LABS: AMPHETAMINES SCREEN,URINE NEGATIVE (NEGATIVE); BENZODIAZEPINES SCREEN,URINE NEGATIVE (NEGATIVE); PHENCYCLIDINE SCREEN,URINE NEGATIVE (NEGATIVE)
[2021-09-10 23:36] LABS: ALANINE AMINOTRANSFERASE 22 IU/L (0-55); ALKALINE PHOSPHATASE 102 IU/L (40-150); ANION GAP 15.6 mmol/L (8-16); BLOOD UREA NITROGEN 13 mg/dL (7-26); BUN/CREATININE RATIO 13 (6-25); CALCIUM 9.4 mg/dL (8.4-10.2); CARBON DIOXIDE 27 mmol/L (22-29); CHLORIDE 101 mmol/L (98-107); CREATINE KINASE 80 IU/L (29-168); CREATININE, SERUM 0.98 mg/dL (0.57-1.11); EST GLOMERULAR FILTRATION RATE 59 ML/MIN (60-); GLUCOSE 139 mg/dL (74-118); POTASSIUM 3.6 mmol/L (3.5-5.1); SODIUM 140 mmol/L (136-145)
[2021-09-10] MEDS ORDERED: HYDROCODONE/APAP 10MG-325MG TAB PO ONE (23:45)
[2021-09-11 02:40] VITALS: BP 129/87
[2021-09-11] MEDS ORDERED: SODIUM CHLORIDE 0.9% 100 ML ONE (03:28)
[2021-09-11] MEDS ORDERED: IOPAMIDOL 370 MG/ML 100 ML INFUS..BTL INJ ONE (03:28)
== END 2021-09-11 02:41 | disposition home or self-care (01) ==
LOC: ER 22:41
DX: R51.9 Headache, unspecified (principal); M54.12 Radiculopathy, cervical region; E11.65 Type 2 diabetes mellitus with hyperglycemia; I10 Essential (primary) hypertension; I25.10 Atherosclerotic heart disease of native coronary artery without angina pectoris; Z95.5 Presence of coronary angioplasty implant and graft
CPT/HCPCS: 36415; 70496; 70498; 71045; 80053; 80307; 82550; 82553; 83880; 84484; 85025; 93005; 99284; J7050; Q9967

== ENCOUNTER → 2024-02-18 | Outpatient (REF) | payer BC ==
[~2024-02-18] MED LIST changes: +IOPAMIDOL 370 MG/ML 100 ML INFUS..BTL INJ ONE; +METOPROLOL TARTRATE 25 MG TAB ONE; +METOPROLOL TARTRATE INJ 1 MG/ML VIAL ONE; +NITROGLYCERIN 0.4 MG SUBL ONE; +SODIUM CHLORIDE 0.9% 100 ML ONE; +SODIUM CHLORIDE 0.9% 250ML 250 ML ONE
[2024-02-18 12:07] LABS: CREATININE, SERUM 0.74 mg/dL (0.57-1.11)
== END ==
LOC: CT 11:09
PROVIDERS: ATTEND Internal Medicine Cardiovascular Disease
DX: R07.9 Chest pain, unspecified (principal)
CPT/HCPCS: 36415; 75574; 82565; 84520; J7050 ×2; Q9967